=== PATIENT | female | born 1980 | race Caucasian/White ===

== ENCOUNTER → 2018-11-07 | Outpatient (REF) ==
[~2018-11-07] MED LIST: FLAGYL500 MG PO
[2018-11-07 10:32] LABS: CHOLESTEROL HDL RATIO 3.4 (<4.4 (CALC))
== END | disposition home or self-care (01) | DRG 951 ==
LOC: LAB 08:58
PROVIDERS: ATTEND Family Medicine
DX: Z02.6 Encounter for examination for insurance purposes (principal)